=== PATIENT | female | born 1995 | race Caucasian/White ===

== ENCOUNTER 2018-06-17 18:11 | Emergency (ER) | payer OTHER ==
[~2018-06-17] VITALS: Ht 167.6 cm; Wt 47.6 kg
[2018-06-17 18:21] VITALS: BP 144/89
[2018-06-17] MEDS ORDERED: CYCLOBENZAPRINE10 M1 PO (18:39)
[2018-06-17] MEDS ORDERED: IBUPROFEN600 M1 PO (18:39)
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
== END 2018-06-17 18:50 ==
LOC: ERH 18:11
DX: M54.2 Cervicalgia (principal)
CPT/HCPCS: 81025